=== PATIENT | male | born 1990 | race Caucasian/White ===

== ENCOUNTER 2016-06-30 12:41 | Emergency (ER) | payer MEDICAID ==
--- NOTE | ~2016-06-30 | EKG ---
PATIENT: KIET GUAJARDO UNIT #: [id number] Ventricular Rate: 70 BPM Atrial Rate: 70 BPM P-R Interval: 188 ms QRS Duration: 98 ms Q-T Interval: 372 ms QTC Calculation(Bezet): 401 ms P Milton: 65 degrees Calculated R Milton: -2 degrees Calculated T Milton: 47 degrees Diagnosis Line: Normal sinus rhythm Diagnosis Line: Incomplete right bundle branch block Diagnosis Line: Borderline ECG Diagnosis Line: When compared with ECG of 01-MAR-2015 01:32, Diagnosis Line: No significant change was found Diagnosis Line: Confirmed by KERA BROWN MD ([id number]) on Diagnosis Line: 07/03/2016 12:02:55 PM INTERPRETING MD: KEVIN TORREZ
--- NOTE | ~2016-06-30 | CT71 ---
[facility] A Service [facility] RADIOLOGY TEXT RESULTS PATIENT: KIET GUAJARDO LOCATION: SED : 89 UNIT #: [id number] AGE: [address]: Kain Diaz MD SEX: M ORDER DR: [id number] [place] [id number] E MR#: [id number] Acc #: [id number] NAME: KIET GUAJAROD : 1990 SEX: M STUDY DATE/TIME: 06/30/2016 13:08 UNIT: SED ROOM: STUDY DESCRIPTION: CT Head Wo Contrast Attending Physician: Kain Diaz M.D. Ordering Physician: Kain Diaz M.D. Primary Care Physician: No Primary Care Physician MEDICAL IMAGING REPORT This report is preliminary unless electronic signature is present. EXAM Noncontrast CT head. DATE 06/30/2016 at 1308 HISTORY 26-year-old male complains of dizziness and blurred vision and forgetfulness. Patient states "can't think straight." Symptoms intermittently for the past 2 weeks. COMPARISON None. TECHNIQUE This CT exam was performed with one or more of the following radiation dose reduction techniques: automatic exposure control, adjustment of mA and/or kV according to patient size, and iterative reconstruction. FINDINGS No acute intracranial hemorrhage, mass lesion, mass effect or midline shift is seen. There is no CT evidence of acute or evolving infarct. Ventricular configuration is within normal limits. A mucous retention cyst or polyp is present in the right maxillary sinus, incompletely imaged. Remainder of paranasal sinuses are clear. Mastoid air cells are clear. The calvaria is within normal limits. IMPRESSION 1. No acute intracranial findings. 2. Right maxillary sinus mucous retention cyst or polyp. [facility] A Service [facility] RADIOLOGY TEXT RESULTS PATIENT: KIET GUAJARDO LOCATION: SED : 89 UNIT #: [id number] AGE: [address]: Kain Diaz MD SEX: M ORDER DR: Dictated by... Torrie Grace M.D. THIS IS AN ELECTRONICALLY VERIFIED REPORT Torrie Grace M.D. at 07/01/2016 7:04 AM LIOR/sabas TD: 06/30/2016 14:30 JOB #: [id number] MEDICAL IMAGING REPORT Page 1 of 1
[~2016-06-30 12:41] MED LIST: ACULAR LS5 ML OU; CATAFLAM PO; ERYTHROMYCIN O3.5 GM OD; ILOTYCIN1 G1 OU; PAXIL30 MG PO; TYLENOL #3 PO
[2016-06-30 13:09] LABS: BASOPHIL# 0.1 X10e3 (0-0.3); BASOPHIL% 0.8 % (0-2.5); EOSINOPHIL# 0.2 X10e3 (0-0.7); EOSINOPHIL% 2.5 % (0.0-7.0); HEMATOCRIT 44.4 % (38.0-50.0); HEMOGLOBIN 15.1 gm/dL (13.0-16.0); LYMPHOCYTE# 3.5 X10e3 (1.0-3.5); LYMPHOCYTE% 39.3 % (17.0-45.0); MEAN CORPUSCULAR HGB CONC 34.1 g/dL (30-36); MEAN PLATELET VOLUME 8.6 FL (6.5-11.5); MONOCYTE# 0.6 X10e3 (0-1.0); MONOCYTE% 6.7 % (3.0-12.0); NEUTROPHIL# 4.5 X10e3 (1.5-7.1); NEUTROPHIL% 50.7 % (40-75); PLATELET COUNT 190 X10e3 (140-420); RED BLOOD COUNT 5.05 X10e (3.90-5.60); RED CELL DISTRIBUTION WIDTH 13.9 % (11.0-15.5); WHITE BLOOD COUNT 8.9 X10e3 (4.0-10.5)
[2016-06-30 13:11] LABS: DIFF IND NO
[2016-06-30 13:25] LABS: POC - CKMB <1.0 ng/mL (0.0-7.9); POC - TROPONIN <0.05 ng/mL (<=0.05)
[2016-06-30 13:35] LABS: ALBUMIN SERUM 4.8 g/dL (3.5-5.0); BILIRUBIN, DIRECT 0.1 mg/dL (0.0-0.2); BILIRUBIN,INDIRECT 0.7 mg/dL (0.0-0.9); BILIRUBIN,TOTAL 0.8 mg/dL (0.2-2.0); BUN/CREATININE RATIO 14.44; CALCIUM SERUM 8.9 mg/dL (8.4-10.2); CREATININE SERUM 0.9 mg/dL (0.6-1.4); GLOM FILT RATE Estimated 116.6 mL/min (>60); POTASSIUM 4.2 mmol/L (3.5-5.1); PROTEIN TOTAL SERUM 7.9 g/dL (6.0-8.3)
[2016-06-30 13:36] LABS: URINE SOURCE CLEAN CATCH
[2016-06-30 13:48] LABS: URINE APPEARANCE CLEAR; URINE BILIRUBIN NEG (NEG); URINE BLOOD NEG (NEG); URINE COLOR YELLOW; URINE GLUCOSE NEG (NORM); URINE KETONE NEG (NEG); URINE LEUKOCYTE ESTERASE NEG (NEG); URINE NITRATE NEG (NEG); URINE PROTEIN NEG (NEG); URINE SPECIFIC GRAVITY 1.015 (1.003-1.035); URINE UROBILINOGEN 0.2 MG/DL (NORM)
[2016-06-30 13:49] LABS: MICRO INDICATED? NO
[2016-06-30 14:17] LABS: AMPHETAMINE NEG (NEG); BARBITURATES NEG (NEG); BENZODIAZEPINES NEG (NEG); COCAINE NEG (NEG); MARIJUANA NEG (NEG); OPIATES NEG (NEG); TRICYCLIC ANTIDEPRESSANTS NEG (NEG); U METHADONE NEG (NEG)
== END 2016-06-30 15:04 | disposition home or self-care (01) ==
LOC: SED 12:41
PROVIDERS: Emergency Medicine
DX: R42 Dizziness and giddiness (principal); R53.1 Weakness; F41.9 Anxiety disorder, unspecified; F17.200 Nicotine dependence, unspecified, uncomplicated
CPT/HCPCS: 36415; 70450; 80048; 80076; 80307; 81003; 82553; 84484; 85025; 93005; 96361; 96374; 99284; J2405

== ENCOUNTER 2016-07-26 17:31 | Emergency (ER) | payer OTHER, MEDICAID ==
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
== END 2016-07-26 18:04 | disposition home or self-care (01) ==
LOC: SED 17:31
DX: S80.02XA Contusion of left knee, initial encounter (principal); F41.9 Anxiety disorder, unspecified; F32.9 Major depressive disorder, single episode, unspecified; F17.210 Nicotine dependence, cigarettes, uncomplicated; Z79.899 Other long term (current) drug therapy; V20.4XXA Motorcycle driver injured in collision with pedestrian or animal in traffic accident, initial encounter; Y93.89 Activity, other specified; Y92.410 Unspecified street and highway as the place of occurrence of the external cause
CPT/HCPCS: 29530; 73562; 99283